=== PATIENT | male | born 2000 | race Caucasian/White ===

== ENCOUNTER 2023-11-25 13:21 | Outpatient (AMB) | payer OTHER, SELFPAY ==
--- NOTE | 2023-11-25 13:28 | A.OFFPC_ITS ---
Vital Signs 11/25/23 13:34 Height 5 ft 4.9 in Weight 213 lb BMI 35.6 BP 108/66 Blood Pressure Location Lt brachial Position Sitting Pulse 59 Pulse Source Pulse Oximeter Pulse Oximetry (%) 98 Oxygen Delivery Method Room Air Intake Visit Reasons: PE Intake Note: Pt is here today for New patient visit PE. Pt has a rash under his L eye. Allergies No Known Allergies Allergy (Verified 11/25/23 13:36) Medication List - Last Reconciled 11/25/23 by Keisha Pina MD No Known Home Meds Tobacco use date assessed: 11/25/23 Dental Screening Dental Screen Date: 11/25/23 Did you have a dental visit in the last 12 months?: Yes Did you have a dental problem in the last 6 months where you did not have access to dental care?: No Was dental information given to patient?: Patient has dentist HPI PE HPI Details Pt presents for [employer]URSE [employer] PE. PFSH Surgical History No pertinent past surgical history Family History Father No problems noted. Mother No problems noted. Social History Housing: House Patient Tobacco Use Status: Never used Tobacco e-Cigarette/Vaping Use: Never Used service: No Current occupational status: unemployed and disabled Cognitive needs: No Hearing needs: No Vision needs: Yes Questionnaire PHQ-9 Over the last 2 weeks, how often have you been bothered by any of the following problems? 1. Little interest or pleasure in doing things: not at all 2. Feeling down, depressed, or hopeless: not at all 3. Trouble falling or staying asleep, or sleeping too much: not at all 4. Feeling tired or having little energy: not at all 5. Poor appetite or overeating: not at all 6. Feeling bad about yourself - or that you are a failure or have let yourself or your family down: not at all 7. Trouble concentrating on things, such as reading the newspaper or watching television: not at all 8. Moving or speaking so slowly that other people could have noticed. Or the opposite - being so fidgety or restless that you have been moving around a lot more than usual: not at all 9. Thoughts that you would be better off or of hurting yourself in some way : not at all Total score: 0 Depression Screening Interpretation: Negative Depression Screening Done: Yes 83476 - PHQ-9 Billing: Yes Source: Developed by Drs. Kevyn Ordaz, Santa Lim, Manpreet Petit and colleagues, with an educational jag from [employer]. Thrive Questionnaire Date Thrive assessed: 11/25/23 I am a: Patient What is your living situation today?: I have a steady place to live Within the past 12 months, did the food you bought not last and you didn't have the money to get more?: Never true Within the past 12 months, did you worry whether your food would run out before you got money to buy more?: Never true Do you have trouble paying for medicines?: No Do you have trouble getting transportation to medical appointments?: No Do you have trouble paying your heating and electricity bill?: No Do you have trouble taking care of your child, family member or friend?: No Do you have trouble with day-to-day activities such as bathing, preparing meals, shopping, managing finances, etc.?: No Are you currently unemployed and looking for a job?: No Are you interested in more education?: No Please select the resources that you would like help with: None THRIVE Score: 0 AUDIT C Alcohol Use Questionnaire (AUDIT-C) 1. How often do you have a drink containing alcohol?: Monthly or less 2. How many drinks containing alcohol do you have on a typical day when you are drinking?: 1 or 2 3. How often do you have six or more drinks on one occasion?: Never Total Score: 1 LEXA-7 AMB Questionnaire LEXA-7 Date LEXA - 7 assessed: 11/25/23 Feeling nervous, anxious, or on edge: 0 = Not at all Not being able to stop or control worryin = Not at all Worrying too much about different things: 0 = Not at all Trouble relaxin = Not at all Being so restless that it is hard to sit still: 0 = Not at all Becoming easily annoyed or irritable: 0 = Not at all Feeling afraid as if something awful might happen: 0 = Not at all Total LEXA-7 score (0-4 normal; 5-9 mild; 10-14 moderate; 15-21 severe): 0 Source: Developed by Drs. Kevyn Ordaz, Santa Lim, Manpreet Petit and colleagues, with an educational jag from [employer]. LEXA-7 Assessment Billing LEXA-7 Assessment Tool: LEXA-7 Assessment 55604 Review of Systems Const All systems reviewed & are unremarkable except as noted in HPI and below Eyes Reports no additional complaints ENT Reports no additional complaints Card Reports no additional complaints Resp Reports no additional complaints GI Reports no additional complaints Reports no additional complaints Physical exam (Primary Care) Vital Signs: Last Vital Signs Pulse 59 11/25/23 13:34 BP 108/66 11/25/23 13:34 Pulse Ox 98 11/25/23 13:34 Oxygen Delivery Method Room Air 11/25/23 13:34 Tobacco/Smoking Status: Tobacco use Status Tobacco use date assessed 11/25/23 11/25/23 13:39 Patient Tobacco Use Status Never used Tobacco 11/25/23 13:39 e-Cigarette/Vaping Use Never Used 11/25/23 13:39 Depression Screening Interpretation: Negative Const General: no acute distress HENMT Head: Yes normal to inspection Ears: hearing grossly normal bilaterally Face and sinus: Yes normal facial exam Throat: Yes posterior oropharynx normal Eyes General: appearance normal, both eyes and all related structures Neck Neck: Yes no lymphadenopathy and Yes supple Resp Effort & Inspection: normal respiratory effort Auscultation: clear to auscultation bilaterally Cardio Rhythm: regular rhythm Heart sounds: S1 normal heart sound present and S2 normal heart sound present GI Inspection: Yes normal to inspection Palpation (GI): Soft to palpation Percussion: Yes normal to percussion Auscultation: normal bowel sounds Assessment and Plan Assessment & Plan (1) Annual physical exam: Code(s): Z00.00 - Encounter for general adult medical examination without abnormal findings Plan: Well-balanced diet regular physical activity weight loss discussed with the patient. He will return for fasting blood work (2) Down's syndrome: Code(s): Q90.9 - Down syndrome, unspecified Orders: Orders Complete Blood Count Auto Diff Today Z00.00 - Encounter for general adult medical examination without abnormal findings UA w Microscopic Today Z00.00 - Encounter for general adult medical examination without abnormal findings Comprehensive Haskell. Panel Fast Today Z00.00 - Encounter for general adult medical examination without abnormal findings Lipid Panel Today Z00.00 - Encounter for general adult medical examination without abnormal findings Coding Level of Care Code New Pt Prev Care 18-39yr(31676 Diagnoses Annual physical exam Z00.00 Down's syndrome Q90.9 Additional Codes LEXA-7 Assessment Billing - LEXA-7 Assessment Tool: LEXA-7 Assessment 95920 ([id number])
[2023-11-25 13:34] VITALS: BP 108/66; PULSE 59; O2SAT 98; BMI 35.6
== END 2023-11-25 15:06 | disposition home or self-care (01) ==
PROVIDERS: PCP Pediatrics Adolescent Medicine; Visit Provider Internal Medicine
DX: Z00.00 Encounter for general adult medical examination without abnormal findings (principal); Q90.9 Down syndrome, unspecified
CPT/HCPCS: 99385

== ENCOUNTER 2023-11-26 08:36 | Outpatient (REF) | payer OTHER, SELFPAY ==
[2023-11-26 11:13] LABS: MANUAL DIFF FLAG NO
[2023-11-26 11:16] LABS: Basophils Absolute Auto 0.1 X10*3/uL (0.0-0.2); Basophils Percent Auto 1.2 % (0-2); Eosinophils Percent Auto 0.4 % (0-4); Hematocrit 49.8 % (42.0-52.0); Hemoglobin 16.6 g/dl (14.0-18.0); Imm Gran Abs Auto 0.01 X10*3/uL (0.00-0.03); Imm Gran Pct Auto 0.1 % (0.0-0.4); Lymphocytes Absolute Auto 2.9 X10*3/uL (1.2-4.9); Lymphocytes Percent Auto 42.4 % (20-40); Mean Corpuscular HGB Conc 33.3 g/dl (31.0-36.0); Mean Corpuscular Hemoglobin 32.4 pg (27.0-33.0); Mean Corpuscular Volume 97.1 fL (80.0-98.0); Mean Platelet Volume 9.2 fL (9.4-12.4); Monocytes Absolute Auto 0.6 X10*3/uL (0.1-1.2); Monocytes Percent Auto 8.8 % (2-11); Neutrophils Absolute Auto 3.3 x10*3/uL (2.0-8.3); Neutrophils Percent Auto 47.1 % (45-73); Platelet Count 292 X10*3/uL (160-400); Red Blood Count 5.13 X10*6/uL (4.60-5.80); Red Cell Distribution Width 13.6 % (11.0-16.0); White Blood Count 6.9 X10*3/uL (4.8-10.8)
[2023-11-26 11:26] LABS: Appearance Urine Clear; Color Urine Yellow; Glucose Urine UA Negative (Negative); Leukocyte Esterase Urine Negative (Negative); Nitrite Urine Negative (Negative); Specific Gravity - Urine 1.025 (1.005-1.025); Urine Blood Negative (Negative); Urine Ketones Negative (Negative); Urine Protein Negative (Neg-Trace)
[2023-11-26 11:33] LABS: Bacteria Urine None Seen (None Seen); Hyaline Casts Urine 0-2 /LPF (0-2); RBC Urine 0-2 /HPF (0-2); Squamous Epithelial Cell Urine 0-2 /HPF (0-2); WBC Urine 0-5 /HPF (0-5)
[2023-11-26 11:42] LABS: Alanine Aminotransferase 29 U/L (0-40); Albumin Level 4.2 g/dL (3.5-5.0); Alkaline Phosphatase 49 U/L (39-117); Anion Gap 13 (12-20); Aspartate Amino Transferase 16 U/L (5-37); Bilirubin Total 0.7 mg/dL (0.0-1.0); Blood Urea Nitrogen 11 mg/dL (9-16); Calcium 9.8 mg/dL (8.4-10.2); Carbon Dioxide 27 mmol/L (22-29); Chloride 105 mmol/L (96-108); Cholesterol 199 mg/dL (<200); Estimated Glomerular Filt Rate > 60; Glucose Fasting 93 mg/dL (60-99); HDL Cholesterol 36 mg/dL (>40); LDL Cholesterol Calculated 147 mg/dL (<100); Sodium 141 mmol/L (135-145); Total Protein 8.1 g/dL (6.5-8.0); Triglycerides 84 mg/dL (<150)
== END 2023-11-26 08:37 | disposition home or self-care (01) ==
LOC: HO.HMGCLDS 08:36
PROVIDERS: PCP Internal Medicine; Visit Provider Internal Medicine
DX: Z00.00 Encounter for general adult medical examination without abnormal findings (principal)
CPT/HCPCS: 36415; 80053; 80061; 81001; 85025

== ENCOUNTER 2025-01-15 07:51 | Outpatient (REF) | payer OTHER, SELFPAY ==
--- OUTSIDE RECORDS SUMMARY | 2025-01-15 07:55 | XMS_ITS | Encounter Summary ---
Author Organization [facility] Address [address] [place] [phone] Phone Care Team Providers Care Director Of Exhibits Name Role Phone Elizabeth Franklin MD Primary Care Prov ider Encounter Details Date Type Department Care Team (Late st Contact Info) Description 06/02/2017 Conversion Encounter [facility] [address] [phone] Elizabeth Mcclelland MD [address] [address] Social History Tobacco Use Types Packs/Day Years Used Date Smoking Tobacco: Never Assessed Sex and Gender Information Value Date Recorded Sex Assigned at Not on file Legal Sex Male 12:16 PM EST Gender Identity Not on file Sexual Orientation Not on file documented as of this encounter Plan of Treatment Not on file documented as of this encounter Visit Diagnoses Not on filedocumented in this encounter Care Teams Director Of Exhibits Relationship Specialty Start Date End Date Elizabeth Franklin MD [address] [address] PCP - General 09/06/16 12/02/23 documented as of this encounter
--- OUTSIDE RECORDS SUMMARY | 2025-01-15 07:55 | XMS_ITS | Clinical Summary ---
Author Organization [facility] Address [address] [place] [phone] Phone Care Team Providers Care Systems Security Consultant Name Role Phone Unavailable Primary Care Provider Unavailabl e Allergies No known active allergies Medications polyethylene glycol 17 GM/SCOOP powderIndication s:Slow transit constipation Take 17 g by mouth daily. 850 g 1 3 Active Nirmatrelvir&Rit onavir 300/100 (Paxlovid, 300/100,) 20 x 150 MG & 10 x 100MG tablet therapy packIndications: COVID Take 1 dose ( 2 capsules nirmatrelvir 150 mg and 1 capsule ritonavir 100 mg ) by mouth twice a day for 5 days. 1 each 3 Active Active Problems Problem Noted Date Diagnosed Date Complicated grieving 10/19/2021 Overview (10/19/2021): Arnaud's ex-legal guardian, brother Piter, took his life in 07/2021. Family is working on chosing a designated legal guardian for Arnaud and notify our office. Slow transit constipation 10/19/2021 Overview (10/19/2021): High-fiber foods discussed w/dad. Assessment & Plan (11/18/2022 10:12 PM EDT): Miralax refilled. Excessive weight gain 10/19/2021 Assessment & Plan (10/19/2021 3:55 PM EDT): Nutritional labs will be drawn. Localized swelling, mass and lump, head 09/28/19 Assessment & Plan (11/18/2022 10:16 PM EDT): Stable scalp fronto-parietal cyst. MODE treated with BiPAP 07/16/2017 Overview (04/26/2021): S/p T&A, nl. Sleep study [facility] 02/13/2021 Rx: CPAP 8-20 cm H2O/BiPAP 9/5cm H2O since 07/20 F/up Reggie and Assessment & Plan (11/18/2022 10:15 PM EDT): An adul pulmonary f/up visit is needed. Assessment & Plan (10/19/2021 3:53 PM EDT): F/p slep study and Dr. Zapata's consult are needed. Assessment & Plan (10/18/2019 9:38 AM EDT): Sleeping well on CPAP, snoring resolved. Behavior problem 07/16/2017 Assessment & Plan (11/18/2022 10:17 PM EDT): Resolving w/maturation. Assessment & Plan (10/13/2020 9:40 PM EDT): Unpredictable anger outbursts have improved. Dyslipidemia, goal LDL below 100 07/16/2017 Assessment & Plan (11/18/2022 10:17 PM EDT): Fasting f/up specimen needs to be drawn Obesity due to excess calories with serious pavel rbidity 07/10/2017 Assessment & Plan (11/18/2022 10:15 PM EDT): Congrats on stable weight last month. Assessment & Plan (10/19/2021 3:54 PM EDT): Drinking 1-2 glasses of water prior to meals and increasing dietary fiber intake are recommended. 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 visits. Assessment & Plan (11/18/2022 10:16 PM EDT): Qyearly f/up w/, failed bl. OAEs again in our office. Assessment & Plan (10/19/2021 4:25 PM EDT): Family will schedule yearly ENT f/up visit. Assessment & Plan (10/13/2020 9:39 PM EDT): Failed R OAE today, yearly ENt f/up needed. Assessment & Plan (10/18/2019 9:38 AM EDT): ENT f/up is needed. Pes planus 07/10/2017 Assessment & Plan (11/18/2022 10:14 PM EDT): Orthotics, custom made shoe inserts may be needed for sx. Assessment & Plan (10/19/2021 3:38 PM EDT): Asx at this time, custom shoe inserts may be needed if sx. Assessment & Plan (10/18/2019 9:43 AM EDT): Asx Vitamin D deficiency 07/10/2017 Assessment & Plan (11/18/2022 10:12 PM EDT): Current level will be checked. Assessment & Plan (10/19/2021 3:37 PM EDT): Vitamin D3 supplements eRxed. Severe intellectual disability Overview (07/14/2020): Due to Down syndrome Assessment & Plan (11/18/2022 10:13 PM EDT): Continues life skill classes, dad unsure of Arnaud's special interests nor strengths. Assessment & Plan (10/19/2021 3:38 PM EDT): Family will discuss future lazaro choices recommendations w/school. Resolved Problems Problem Noted Date Diagnosed Date Resolved Date Isolated proteinuria without specific morphologic lesion 10/18/2019 10/13/2020 Chalazion 09/26/2019 10/19/2021 Assessment & Plan (10/18/2019 9:39 AM EDT): Use of a/allergy meds encouraged. Snoring 07/16/2017 07/12/2018 Conductive hearing loss 01/02/201607/03 Immunizations Immunization Administration Dates Next Due DTaP 11/01/2005, 3,02/05/2002,11/07,2001 H1N1 01/30/2009 HPV Vaccine 9 Valent 10/13/2020,10/17/2019,07/12 Hep A, ped/adol 01/10/2015,06/03/2014 Hep B, ped/adol 04/09/2002,2001,2001 HiB 09/10/2002, 2,2001,08/03 IPV 11/01/2005, 3,2001,09/06 Influenza, injectable, quadr ivalent, preservative free 07/11/2017,01/16/2016,01/10/2015,01/07 Influenza, injectable, trivalent 010,05/09/2009,03/10/2007,01/26,01/22/2005,03/19/2003 MMR 11/01/2005,09/10/2002 Meningococcal B Trumenba 10/13/2020,10/17/2019 Meningococcal Conj (Menactra) MCV4P 07/11/2017,0 05/22/2013 Pneumococcal Conjugate 09/10/2002,2002,2001,09/06 Pneumococcal Polysaccharide 08/21/2010 Tdap 05/22/2013 Varicella 12/07/2006,07/16/2002 Family History Medical History Relation Name Comments Heart disease (Premature) Father Relation Name Status Comments Father Social History Tobacco Use Types Packs/Day Years Used Date Smoking Tobacco: Never Smokeless Tobacco: Never Alcohol Use Standard Drinks/Week Comments Never 0 (1 standard drink = 0.6 oz pur e alcohol) Hunger/Food Answer Date Recorded In the last 12 months, did y ou or your family ever eat less than you felt you should because there wasn't enough money for food? No 11/18/2022 Stable Housing Answer Date Recorded Are you worried that in the next 2 months you may not have stable housing? No 11/18/2022 Transportation Concerns Answer Date Rec orded In the last 12 months, have you or your family ever had to go without healthcare because you didn't have a way to get there? No 11/18/2022 Hazards in Home Answer Date Recorded Think about the place you li ve. Do you have problems with any of the following? Pests (mice or roaches), mold, no/not working smoke detectors, water leaks, no window guards. No 2022 Financing Utilities Answer Date Recorde d In the last 12 months, has t he electric, gas, oil, or water company threatened to shut off your services in your home? No 11/18/2022 Safety at Home Answer Date Recorded Are you or your family worried about feeling saf e in your home? No 11/18/2022 Outside Support Answer Date Recorded Do you feel that you need mo re support from other people or programs to help you care for yourself or your family? No 11/18/2022 Understanding Health Concerns Answer Da te Recorded Do you need help understandi ng your or your child's healthcare needs (diagnosis, medications, plan, etc.)? No 11/18/2022 Financing Health Concerns Answer Date R ecorded In the last 12 months, was t here a time when your child needed to see a doctor or get medications or supplies but could not because of cost? No 11/18/2022 Missing School or Work Answer Date Dann rded Did you or your child miss s chool or work because of a health problem that could have been avoided? No 11/18/2022 Sex and Gender Information Value Date Recorded Sex Assigned at Not on file Legal Sex Male 12:16 PM EST Gender Identity Not on file Sexual Orientation Not on file Last Filed Vital Signs Vital Sign Reading Time Taken Comments Blood Pressure 127/74 01/24/2023 9:21 AM EDT Pulse 71 01/24/2023 9:21 AM EDT Temperature 36.2 C (97.2 F) 01/24/2023 9:21 AM EDT Respiratory Rate - - Oxygen Saturation - - Inhaled Oxygen Concentration - - Weight 104 kg (229 lb 12.8 oz) 01/24/2023 9:21 A M EDT Height 161.3 cm (5' 3.5 ) 01/24/2023 9:21 AM EDT Body Mass Index 40.07 01/24/2023 9:21 AM EDT Plan of Treatment Health Maintenance Due Date Last Done Comments DTaP,Tdap,and Td Vaccines (7 - Td or Tdap) 05/22/2023 05/22/2013, 11/01/2005, 01/03/2003, Additional history exists Influenza Vaccines (#1) 2024 07/12/19 18, 01/16/2016, 01/10/2015, Additional history exists COVID-19 Vaccine (3 - 2024-2 6 season) 2024 04/22/2021, 06/06/2020 Hepatitis B Vaccines Completed 04/09/2002, 2001, 2001 HIB Vaccines Completed 09/10/2002, 07/2001, 2001, Additional history exists IPV Vaccines Completed 11/01/2005, 05/2002, 2001, Additional history exists MMR Vaccines Completed 11/01/2005, 09/10/2002 Varicella Vaccines Completed 12/07/2006, 07/16/2002 Pneumococcal Vaccine Completed 08/21/2010, 09/10/2002, 07/16/2002, Additional history exists Hepatitis A Vaccines Completed 01/10/2015, 06/04/19 15 Meningococcal Vaccine Completed 07/11/2017, 014 HPV Vaccines Completed 10/13/2020, 10/02, 07/12/2018 Men B Vaccine Completed 10/13/2020, 10/17/2019 Insurance [facility]ERCIAL [facility]CIAL [facility] [employer]CIAL [facility]
[2025-01-15 10:06] LABS: MANUAL DIFF FLAG NO
[2025-01-15 10:27] LABS: Hematocrit 48.4 % (42.0-52.0); Hemoglobin 16.2 g/dl (14.0-18.0); Imm Gran Abs Auto 0.01 X10*3/uL (0.00-0.03); Imm Gran Pct Auto 0.1 % (0.0-0.4); Lymphocytes Absolute Auto 3.1 X10*3/uL (1.2-4.9); Mean Corpuscular HGB Conc 33.5 g/dl (31.0-36.0); Mean Corpuscular Hemoglobin 32.5 pg (27.0-33.0); Mean Corpuscular Volume 97.2 fL (80.0-98.0); NRBC Abs Auto 0.000 X10*3/uL (0.0-0.012); NRBC Pct Auto 0.0 /100WBC (0.0-0.2); Platelet Count 311 X10*3/uL (160-400); Red Blood Count 4.98 X10*6/uL (4.60-5.80); White Blood Count 8.0 X10*3/uL (4.8-10.8)
[2025-01-15 10:37] LABS: Appearance Urine Clear; Glucose Urine UA Negative (Negative); PH 7.0 (5.0-9.0); Specific Gravity - Urine 1.020 (1.005-1.025)
[2025-01-15 11:02] LABS: Alanine Aminotransferase 44 U/L (0-40); Albumin Level 4.4 g/dL (3.5-5.0); Alkaline Phosphatase 48 U/L (39-117); Anion Gap 9 (12-20); Aspartate Amino Transferase 29 U/L (5-37); Blood Urea Nitrogen 13 mg/dL (9-16); Calcium 9.5 mg/dL (8.4-10.2); Carbon Dioxide 31 mmol/L (22-29); Chloride 104 mmol/L (96-108); Cholesterol 220 mg/dL (<200); Estimated Glomerular Filt Rate > 60; HDL Cholesterol 39 mg/dL (>40); Potassium 4.3 mmol/L (3.3-5.1); Sodium 140 mmol/L (135-145); Total Protein 8.0 g/dL (6.5-8.0); Triglycerides 97 mg/dL (<150)
== END 2025-01-15 07:52 | disposition home or self-care (01) ==
LOC: HO.HMGCLDS 07:51
PROVIDERS: PCP Internal Medicine; Visit Provider Internal Medicine
DX: Z00.00 Encounter for general adult medical examination without abnormal findings (principal); Q90.9 Down syndrome, unspecified; E78.5 Hyperlipidemia, unspecified
CPT/HCPCS: 36415; 80053; 80061; 81001; 84443; 85025; 96127

== ENCOUNTER 2025-01-15 14:03 | Outpatient (AMB) | payer OTHER, SELFPAY ==
[2025-01-15 14:04] VITALS: BP 100/66; PULSE 60; RESP 17; TEMP 37.6; O2SAT 98; BMI 38.4
--- NOTE | 2025-01-15 14:04 | MHC.PC.OV ---
Vital Signs 01/15/25 14:04 Height 5 ft 4.9 in Weight 230 lb BMI 38.4 BP 100/66 Blood Pressure Location Lt brachial Position Sitting Respiration 17 Pulse 60 Pulse Source Pulse Oximeter Temp 99.6 F Temp Source Oral Pulse Oximetry (%) 98 Oxygen Delivery Method Room Air Intake Visit Reasons: annual pe Intake Note: Pt is here today for PE. Allergies No Known Allergies Allergy (Verified 01/15/25 14:05) Tobacco use date assessed: 01/15/25 Dental Screening Dental Screen Date: 01/15/25 Did you have a dental visit in the last 12 months?: Yes Did you have a dental problem in the last 6 months where you did not have access to dental care?: No Was dental information given to patient?: Patient has dentist HPI annual pe HPI Details Patient presents for physical. He has been trying to lose weight decreasing caloric intake increasing physical activity for over 6 months unsuccessfully. Patient gained 20 lb since last physical. Patient is interested in trying GLP 1 agonist to facilitate weight loss [facility] Medical History (Updated 01/15/25 @ 15:00 by Keisha Pina MD) BMI 38.0-38.9,adult Annual physical exam Down's syndrome Hyperlipemia Surgical History No pertinent past surgical history Family History Father No problems noted. Mother No problems noted. Social History Housing: House Patient Tobacco Use Status: Never used Tobacco e-Cigarette/Vaping Use: Never Used service: No Current occupational status: unemployed and disabled Cognitive needs: No Hearing needs: No Vision needs: Yes Questionnaire PHQ-9 Over the last 2 weeks, how often have you been bothered by any of the following problems? 1. Little interest or pleasure in doing things: not at all 2. Feeling down, depressed, or hopeless: not at all 3. Trouble falling or staying asleep, or sleeping too much: not at all 4. Feeling tired or having little energy: not at all 5. Poor appetite or overeating: not at all 6. Feeling bad about yourself - or that you are a failure or have let yourself or your family down: not at all 7. Trouble concentrating on things, such as reading the newspaper or watching television: not at all 8. Moving or speaking so slowly that other people could have noticed. Or the opposite - being so fidgety or restless that you have been moving around a lot more than usual: not at all 9. Thoughts that you would be better off or of hurting yourself in some way: not at all Total score: 0 Depression Screening Interpretation: Negative Depression Screening Done: Yes 55524 - PHQ-9 Billing: Yes Source: Developed by Drs. Kevyn Ordaz, Santa Lim, Manpreet Petit and colleagues, with an educational jag from [employer]. Thrive Questionnaire Date Thrive assessed: 01/15/25 AUDIT C Alcohol Use Questionnaire (AUDIT-C) 1. How often do you have a drink containing alcohol?: Never 3. How often do you have six or more drinks on one occasion?: Never Total Score: 0 LEXA-7 AMB Questionnaire LEXA-7 Date LEXA - 7 assessed: 01/15/25 Feeling nervous, anxious, or on edge: 0 = Not at all Not being able to stop or control worryin = Not at all Worrying too much about different things: 0 = Not at all Trouble relaxin = Not at all Being so restless that it is hard to sit still: 0 = Not at all Becoming easily annoyed or irritable: 0 = Not at all Feeling afraid as if something awful might happen: 0 = Not at all Total LEXA-7 score (0-4 normal; 5-9 mild; 10-14 moderate; 15-21 severe): 0 Source: Developed by Drs. Kevyn Ordaz, Manpreet Lamas and colleagues, with an educational jag from [employer]. LEXA-7 Assessment Billing LEXA-7 Assessment Tool: LEXA-7 Assessment 83420 Review of Systems Const All systems reviewed & are unremarkable except as noted in HPI and below Eyes Reports no additional complaints ENT Reports no additional complaints Card Reports no additional complaints Resp Reports no additional complaints GI Reports no additional complaints Reports no additional complaints Physical exam (Primary Care) Vital Signs: Last Vital Signs Temp 99.6 F 01/15/25 14:04 Pulse 60 10/14/25 14:04 Resp 17 01/15/25 14:04 BP 100/66 01/15/25 14:04 Pulse Ox 98 01/15/25 14:04 Oxygen Delivery Method Room Air 01/15/25 14:04 BMI result Body Mass Index 38.4 Tobacco/Smoking Status: Tobacco use Status Tobacco use date assessed 01/15/25 01/15/25 14:07 Patient Tobacco Use Status Never used Tobacco 01/15/25 14:07 e-Cigarette/Vaping Use Never Used 01/15/25 14:04 PHQ-9: PHQ-9 Score PHQ-9: Total score 0 01/15/25 14:07 Depression Screening Interpretation: Negative Thrive Assessment: Date of Thrive Assessment Date Thrive assessed 01/15/25 01/15/25 14:07 Const General: no acute distress HENMT Head: Yes normal to inspection Ears: TM's normal bilaterally Face and sinus: Yes normal facial exam Throat: Yes posterior oropharynx normal Eyes General: appearance normal, both eyes and all related structures Neck Neck: Yes no lymphadenopathy and Yes supple Resp Effort & Inspection: normal respiratory effort Auscultation: clear to auscultation bilaterally Cardio Rhythm: regular rhythm Heart sounds: S1 normal heart sound present and S2 normal heart sound present GI Inspection: Yes normal to inspection Palpation (GI): Soft to palpation Percussion: Yes normal to percussion Auscultation: normal bowel sounds Coding Level of Care Code Est Pt Prev Care 18-39y(15866) Diagnoses Annual physical exam Z00.00 BMI 38.0-38.9,adult Z68.38 Hyperlipemia E78.5 Additional Codes LEXA-7 Assessment Billing - LEXA-7 Assessment Tool: LEXA-7 Assessment 97467 ([id number]) PHQ-9 - 94102 - PHQ-9 Billing: Yes ([id number]) Assessment & Plan Assessment & Plan (1) Annual physical exam: Code(s): Z00.00 - Encounter for general adult medical examination without abnormal findings Category: Medical Plan: Well-balanced diet regular physical activity discussed with the patient (2) BMI 38.0-38.9,adult: Code(s): Z68.38 - Body mass index [BMI] 38.0-38.9, adult Category: Medical Plan: Decreasing caloric intake increasing physical activity discussed with the patient and his father. Semaglutide 0.25 mg weekly will be tried to facilitate weight loss. Patient will follow-up in 2 months (3) Hyperlipemia: Code(s): E78.5 - Hyperlipidemia, unspecified Category: Medical Plan: Low-cholesterol diet increasing physical activity weight loss discussed with the patient
--- OUTSIDE RECORDS SUMMARY | 2025-01-15 17:02 | XMS_ITS | Encounter Summary ---
Author Organization [facility] Address [address] [place] [phone] Phone Care Team Providers Care Water Softener Servicer And Installer Name Role Phone Elizabeth Franklin MD Primary Care Prov ider Encounter Details Date Type Department Care Team (Late st Contact Info) Description 06/02/2017 Conversion Encounter [facility] [address] [phone] Elizabeth Mcclelland MD [address] [phone] Social History Tobacco Use Types Packs/Day Years [...] on filedocumented in this encounter Care Teams Water Softener Servicer And Installer Relationship Specialty Start Date End Date Elizabeth Franklin MD [address] [address] PCP - General 09/06/16 12/02/23 documented as of this encounter
--- OUTSIDE RECORDS SUMMARY | 2025-01-15 17:03 | XMS_ITS | Clinical Summary ---
Author Organization [facility] Address [address] [place] [phone] Phone Care Team Providers Care Punchboard Stuffer Name Role Phone Unavailable Primary Care Provider [...] Overview (04/26/2021): S/p T&A, nl. Sleep study [facility] 02/13/2021 Rx: CPAP 8-20 cm H2O/BiPAP 9/5cm [...] B Vaccine Completed 10/13/2020, 10/17/2019 Insurance COMMERCIAL [facility] COMMERCIAL [facility] COMMERCIAL [facility]
== END 2025-01-15 15:04 | disposition home or self-care (01) ==
LOC: HO.HMCC 14:03
PROVIDERS: PCP Internal Medicine; Visit Provider Internal Medicine
DX: Z00.00 Encounter for general adult medical examination without abnormal findings (principal); Z68.38 Body mass index [BMI] 38.0-38.9, adult; E78.5 Hyperlipidemia, unspecified

== ENCOUNTER 2025-03-18 11:17 | Outpatient (AMB) | payer OTHER, MEDICAID, SELFPAY ==
[2025-03-18 11:18] VITALS: BP 104/66; PULSE 72; RESP 16; TEMP 37.3; O2SAT 98; BMI 38.2
--- NOTE | 2025-03-18 11:18 | A.OFFPC_ITS ---
Vital Signs 03/18/25 11:18 Height 5 ft 4.9 in Weight 229 lb BMI 38.2 BP 104/66 Blood Pressure Location Rt brachial Position Sitting Respiration 16 Pulse 72 Pulse Source Pulse Oximeter Temp 99.2 F Temp Source Oral Pulse Oximetry (%) 98 Oxygen Delivery Method Room Air Intake Visit Reasons: 2 month follow up Intake Note: Pt is here today for 2 months follow up visit. Allergies No Known Allergies Allergy (Verified 03/18/25 11:27) Medication List - Last Reconciled 03/18/25 by Keisha Pina MD No Known Home Meds Tobacco use date assessed: 03/18/25 Dental Screening Dental Screen Date: 01/15/25 HPI 2 month follow up HPI Details Pt presents for hyperlipid and obesity, Pt has been decreasing caloric intake and trying to increase physical activity. His insurance did not cover GLP 1 agonist for weight loss PFSH Medical History BMI 38.0-38.9,adult Annual physical exam Down's syndrome Hyperlipemia Surgical History No pertinent past surgical history Family History Father No problems noted. Mother No problems noted. Social History Housing: House Patient Tobacco Use Status: Never used Tobacco e-Cigarette/Vaping Use: Never Used service: No Current occupational status: unemployed and disabled Cognitive needs: No Hearing needs: No Vision needs: Yes Questionnaire Thrive Questionnaire Date Thrive assessed: 01/15/25 LEXA-7 AMB Questionnaire LEXA-7 Date LEXA - 7 assessed: 01/15/25 Source: Developed by Drs. Kevyn Ordaz, Santa Lim, Manpreet Petit and colleagues, with an educational jag from [employer]. Review of Systems Const All systems reviewed & are unremarkable except as noted in HPI and below Eyes Reports no additional complaints ENT Reports no additional complaints Card Reports no additional complaints Resp Reports no additional complaints GI Reports no additional complaints Reports no additional complaints Physical exam (Primary Care) Vital Signs: Last Vital Signs Temp 99.2 F 03/18/25 11:18 Pulse 72 03/18/25 11:18 Resp 16 03/18/25 11:18 BP 104/66 03/18/25 11:18 Pulse Ox 98 03/18/25 11:18 Oxygen Delivery Method Room Air 03/18/25 11:18 BMI result Body Mass Index 38.2 Tobacco/Smoking Status: Tobacco use Status Tobacco use date assessed 03/18/25 03/18/25 11:27 Patient Tobacco Use Status Never used Tobacco 03/18/25 11:27 e-Cigarette/Vaping Use Never Used 03/18/25 11:18 Thrive Assessment: Date of Thrive Assessment Date Thrive assessed 01/15/25 03/18/25 11:18 Const General: no acute distress HENMT Head: Yes normal to inspection Mouth: Normal oral and palatal mucosa present Resp Effort & Inspection: normal respiratory effort Auscultation: clear to auscultation bilaterally Cardio Rhythm: regular rhythm Heart sounds: S1 normal heart sound present and S2 normal heart sound present Coding Level of Care Code Est Pt Level 4 (88198) Diagnoses Hyperlipemia E78.5 BMI 38.0-38.9,adult Z68.38 Assessment & Plan Assessment & Plan (1) Hyperlipemia: Code(s): E78.5 - Hyperlipidemia, unspecified Category: Medical Plan: Low-cholesterol diet, increase physical activity weight loss discussed with the patient repeat lipid profile in 4 months (2) BMI 38.0-38.9,adult: Code(s): Z68.38 - Body mass index [BMI] 38.0-38.9, adult Category: Medical Plan: Decreasing caloric intake increasing physical activity discussed with the patient and his father Orders: Orders Vitamin D 25-OH Total 4 Months E78.5 - Hyperlipidemia, unspecified, Z68.38 - Body mass index [BMI] 38.0-38.9, adult Lipid Panel 4 Months E78.5 - Hyperlipidemia, unspecified, Z68.38 - Body mass index [BMI] 38.0-38.9, adult Complete Blood Count Auto Diff 4 Months E78.5 - Hyperlipidemia, unspecified, Z68.38 - Body mass index [BMI] 38.0-38.9, adult Comprehensive [place]. Panel Fast 4 Months E78.5 - Hyperlipidemia, unspecified, Z68.38 - Body mass index [BMI] 38.0-38.9, adult
== END 2025-03-18 12:30 | disposition home or self-care (01) ==
PROVIDERS: PCP Internal Medicine; Visit Provider Internal Medicine
DX: E78.5 Hyperlipidemia, unspecified (principal); Z68.38 Body mass index [BMI] 38.0-38.9, adult